=== PATIENT | male | born 1965 | race Two or more races ===

== ENCOUNTER 2018-07-02 15:05 | Outpatient (CLI) | payer OTHER | END 2018-07-02 15:36 | disposition home or self-care (01) | LOC: LAB 15:05 | DX: B95.61 Methicillin susceptible Staphylococcus aureus infection as the cause of diseases classified elsewhere (principal) ==

== ENCOUNTER 2018-08-04 13:50 | Outpatient (CLI) | payer OTHER | END 2018-08-04 13:57 | disposition home or self-care (01) | LOC: LAB 13:50 | DX: N49.2 Inflammatory disorders of scrotum (principal) ==